=== PATIENT | male | born 1985 | race Caucasian/White ===

== ENCOUNTER 2021-12-17 13:12 | Emergency (ER) | payer OTHER ==
[~2021-12-17] VITALS: Ht 172.7 cm; Wt 60.0 kg
[2021-12-17] MEDS ORDERED: PREG75 PO (13:30)
[2021-12-17] MEDS ORDERED: CELE200 PO (13:30)
[2021-12-17 15:37] VITALS: BP 118/71
== END 2021-12-17 15:39 | disposition home or self-care (01) ==
LOC: EMS 13:12
DX: M54.12 Radiculopathy, cervical region (principal)
CPT/HCPCS: 99281; 99283